=== PATIENT | female | born 1960 | race Two or more races ===

== ENCOUNTER 2021-08-07 10:14 | Emergency (ER) | payer OTHER ==
[~2021-08-07] VITALS: Ht 157.5 cm; Wt 79.8 kg
[2021-08-07 10:25] VITALS: BP 103/61
[2021-08-07] MEDS ORDERED: KETOROLAC TROMETH 60MG/2ML VIAL IM ONE (11:45)
[2021-08-07] MEDS ORDERED: HYDROcodone-ACET 5/325MG TAB PO ONE (11:45)
[2021-08-07] MEDS ORDERED: ONDA-144 PO (11:46)
[2021-08-07] MEDS ORDERED: HYDR-4902 PO (11:46)
== END 2021-08-07 11:54 | disposition home or self-care (01) ==
LOC: ER 10:14
DX: S52.614A Nondisplaced fracture of right ulna styloid process, initial encounter for closed fracture (principal); S52.571A Other intraarticular fracture of lower end of right radius, initial encounter for closed fracture; Z90.89 Acquired absence of other organs; Z88.6 Allergy status to analgesic agent; W19.XXXA Unspecified fall, initial encounter; Y93.89 Activity, other specified; Y92.89 Other specified places as the place of occurrence of the external cause; Y99.8 Other external cause status
CPT/HCPCS: 29125; 73110; 96372; 99283; J1885

== ENCOUNTER 2023-07-21 00:13 | Emergency (ER) | payer OTHER ==
[~2023-07-21] VITALS: Ht 157.5 cm; Wt 74.0 kg
[~2023-07-21 00:13] MED LIST: HYDR-4902 PO; ONDA-144 PO
[2023-07-21 00:20] VITALS: BP 136/89; RESP 17; O2SAT 98
[2023-07-21 00:23] VITALS: PULSE 61
[2023-07-21 00:45] LABS: Basophils # (auto) 0.1 10 ^3/uL (0-0.2); Basophils % (auto) 0.9 % (0.0-2.0); Eosinophils # (auto) 0.2 10 ^3/uL (0-0.8); Eosinophils % (auto) 2.7 % (0.0-7.0); Hematocrit 38.3 % (36.0-46.0); Hemoglobin 12.9 g/dL (12.2-16.2); Lymphocytes # (auto) 2.7 10 ^3/uL (0.4-5.4); Lymphocytes % (auto) 48.8 % (10.0-50.0); Mean Corpuscular Hemoglobin 28.7 pg (28.0-32.0); Mean Corpuscular Hgb Conc. 33.5 g/dL (32.0-36.0); Mean Corpuscular Volume 85.5 fL (80.0-100.0); Monocytes # (auto) 0.4 10 ^3/uL (0-1.3); Monocytes % (auto) 7.3 % (0.0-12.0); Neutrophils # (auto) 2.3 10 ^3/uL (1.6-8.6); Neutrophils % (auto) 40.3 % (37.0-80.0); Nucleated Red Blood Cells % 0.1 %; Red Blood Cells 4.48 10^6/uL (4.0-5.20); Red Cell Distribution Width 14.1 % (11.8-14.3); White Blood Cell 5.6 10^3/uL (4.4-10.8)
[2023-07-21 01:02] LABS: INR 0.99 (0.9-1.15); Partial Thromboplastin Time 26.1 SEC (24.5-34.5); Prothrombin Time 10.5 sec (9.3-11.8)
[2023-07-21 01:05] LABS: Alanine Aminotransferase 18 U/L (7-40); Albumin 3.8 g/dL (3.2-4.8); Alkaline Phosphatase 97 U/L (46-116); Anion Gap 6 (5-15); Aspartate Aminotransferase 22 U/L (13-40); BUN/Creatinine Ratio 27.1 (10.0-20.0); Blood Urea Nitrogen 16 mg/dL (9-23); Calcium 9.5 mg/dL (8.7-10.4); Carbon Dioxide 25 mmol/L (20-30); Chloride 110 mmol/L (98-107); Glucose 92 mg/dL (74-106); Magnesium 1.9 mg/dL (1.6-2.6); Potassium 3.9 mmol/L (3.5-5.1); Sodium 141 mmol/L (136-145)
[2023-07-21 01:06] LABS: Bilirubin, Total 0.4 mg/dL (0.2-1.0); Total Protein 6.5 g/dL (5.7-8.2)
[2023-07-21] MEDS ORDERED: BENZ200C64 PO (03:46)
[2023-07-21] MEDS ORDERED: ACET500T58 PO (03:46)
[2023-07-21] MEDS ORDERED: AMOX875T4 PO (03:46)
[2023-07-21] MEDS ORDERED: IOHEXOL 350 MG/ML 100ML IJ ONE (05:43)
== END 2023-07-21 05:39 | disposition home or self-care (01) ==
LOC: ER 00:13
DX: J20.9 Acute bronchitis, unspecified (principal); R07.89 Other chest pain; Z90.49 Acquired absence of other specified parts of digestive tract; Z79.2 Long term (current) use of antibiotics; Z79.899 Other long term (current) drug therapy
CPT/HCPCS: 36415; 71045; 71275; 80053; 83735; 83880; 84484; 85025; 85610; 85730; 99285; Q9967